=== PATIENT | female | born 1940 | race Caucasian/White ===

== ENCOUNTER 2016-11-04 09:22 | Day surgery (SDC) | payer MEDICARE, OTHER ==
[~2016-11-04 09:22] MED LIST: FENTANYL 250 MCG/5 ML AMP IV PRN; IV START KIT ONE; LACTATED RINGERS 1,000 ML IV SCH; LACTATED RINGERS 1,000 ML ONE; MIDAZOLAM HCL 5 MG/5 ML VIAL IV PRN
[2016-11-04] MEDS ORDERED: MIDAZOLAM HCL 5 MG/5 ML VIAL ONE (09:36)
[2016-11-04] MEDS ORDERED: FENTANYL 250 MCG/5 ML AMP ONE (09:36)
--- NOTE | 2016-11-06 13:51 | SURGPATH ---
[facility] [address] [place] [id number] Patient Name: HARISH MAZARIEGOS MR#: [id number] : 1940 Gender: F Specimen #: [id number] Collected: 11/04/2016 Received: 11/05/2016 Reported: 11/06/2016 Submitting Phys: JANNY BASSETT Copy To Phys: [facility] [employer] [facility] [employer] [place] MARTÍNEZ Clinical History / Pre-Operative Diagnosis: Surveillance Specimen Source / Surgical Procedure Performed: Mid transverse colon polyp Interpretation: MID TRANSVERSE COLON POLYP: - TUBULAR ADENOMA. Electronically Signed Out Ele Louis M.D. Gross Description: The specimen is received in formalin labeled with the patient's name and "mid transverse colon polyp". The specimen consists of a single fragment of montero soft tissue, 0.5 cm in greatest dimension. Submitted in toto in one cassette ANGELLA Rich Microscopic Description: Sections of the mid transverse colon polyp show adenomatous mucosal changes without evidence of high-grade dysplasia or invasive carcinoma. 1: 81074 D12.3
== END 2016-11-04 11:38 | disposition home or self-care (01) ==
LOC: SDC 09:22
PROVIDERS: ATTEND Internal Medicine Gastroenterology
PROC: 0DBL8ZX Excision of Transverse Colon, Via Natural or Artificial Opening Endoscopic, Diagnostic (ICD-10-PCS; principal; 2016-11-04)
DX: Z12.11 Encounter for screening for malignant neoplasm of colon (principal); D12.3 Benign neoplasm of transverse colon; Z79.82 Long term (current) use of aspirin; K57.30 Diverticulosis of large intestine without perforation or abscess without bleeding; E66.9 Obesity, unspecified; Z68.35 Body mass index [BMI] 35.0-35.9, adult; E78.5 Hyperlipidemia, unspecified; I10 Essential (primary) hypertension; E03.9 Hypothyroidism, unspecified; I25.10 Atherosclerotic heart disease of native coronary artery without angina pectoris; Z88.1 Allergy status to other antibiotic agents; Z88.8 Allergy status to other drugs, medicaments and biological substances; Z88.2 Allergy status to sulfonamides
CPT/HCPCS: 45385; J3010; J2250; J7120